=== PATIENT | female | born 1955 | race Hispanic/Latino ===

== ENCOUNTER 2020-01-02 12:07 | Day surgery (SDC) | payer MEDICARE ==
[~2020-01-02] VITALS: Ht 160 cm; Wt 105.6 kg
[~2020-01-02 12:07] MED LIST: ATIV2TAB PO; DOXE150C PO; DOXE50CA PO; LEVO112T2 PO; METF500T13 PO; SERT-138 PO; VASC1CAP2 PO
[2020-01-02] MEDS ORDERED: ONDANSETRON 4MG/2ML VIAL As Ordered ONE (14:23)
[2020-01-02] MEDS ORDERED: fentaNYL 100 MCG/2 ML INJECTION (J3010) As Ordered ONE (14:23)
[2020-01-02] MEDS ORDERED: propofoL 200 MG/20 ML VIAL As Ordered ONE ×2 (14:23→14:36)
[2020-01-02] MEDS ORDERED: LIDOCAINE 2% 100MG/5ML SDV (FOR ANES.) As Ordered ONE (14:23)
[2020-01-02 15:21] VITALS: BP 122/60
--- NOTE | 2020-01-18 11:35 | ROOR ---
Patient Name: Judit Gay Procedure Date: 01/02/2020 12:51 PM Date of : 1955 Age: 64 Room: [facility] Gender: Female Note Status: Finalized Procedure: Upper GI endoscopy Indications: Odynophagia, Heartburn, Failure to respond to medical treatment Providers: Bebo ROBERTS MD Referring MD: BRAYAN SANCHEZ MD Requesting Provider: Medicines: Monitored Anesthesia Care Complications: No immediate complications. Procedure: Pre-Anesthesia Assessment: - The heart rate, respiratory rate, oxygen saturations, blood pressure, adequacy of pulmonary ventilation, and response to care were monitored throughout the procedure. The Endoscope was introduced through the mouth, and advanced to the second part of duodenum. The upper GI endoscopy was accomplished without difficulty. The patient tolerated the procedure well. Findings: The examined esophagus was normal. This was biopsied with a cold forceps for histology. A single 4 mm sessile polyp was found on the anterior wall of the gastric body. The polyp was removed with a cold snare. Resection and retrieval were complete. Two 5 mm sessile polyps were found in the cardia. The polyp was removed with a cold snare. Resection and retrieval were complete. The exam of the stomach was otherwise normal. Biopsies were taken with a cold forceps in the gastric antrum for Helicobacter pylori testing. A single 4 mm sessile polyp (vs acCessory papilla) was found in the area of the major papilla. Biopsies were taken with a cold forceps for histology. The exam of the duodenum was otherwise normal. Impression: - Normal esophagus. Biopsied. - Stomach Body: A single small gastric polyp. Resected and retrieved. - Stomach Cardia: Two small gastric polyps. Resected and retrieved. - Biopsies were taken with a cold forceps for Helicobacter pylori testing. - A single duodenal polyp just proximal to the papilla. Biopsied. Recommendation: - Continue present medications. - Telephone endoscopist for pathology results in 2 weeks. - Use sucralfate tablets 1 gram PO QID. - (the script was sent to your pharmacy on file) Bebo Roberts MD Bebo ROBERTS MD 01/02/2020 3:01:35 PM Electronically signed by Bebo ROBERTS MD Number of Addenda: 0 Note Initiated On: 01/02/2020 12:51 PM Estimated Blood Loss: Estimated blood loss: none.
== END 2020-01-02 15:23 | disposition home or self-care (01) ==
LOC: M OPP 12:07
PROVIDERS: ATTEND Internal Medicine Gastroenterology
DX: K31.7 Polyp of stomach and duodenum (principal); R13.10 Dysphagia, unspecified; R12 Heartburn; K21.9 Gastro-esophageal reflux disease without esophagitis; E11.9 Type 2 diabetes mellitus without complications; Z79.84 Long term (current) use of oral hypoglycemic drugs; Z79.899 Other long term (current) drug therapy; Z88.2 Allergy status to sulfonamides; Z91.012 Allergy to eggs; Z91.018 Allergy to other foods
CPT/HCPCS: 43239; 43251; 88305; 88342; J2405; J3010

== ENCOUNTER → 2020-11-06 | Outpatient (CLI) | payer MEDICARE ==
[~2020-11-06] MED LIST changes: +E-Z-PAQUE 96% w/w SUSP 176GM BTL As Ordered ONE
--- NOTE | 2020-11-06 16:52 | REP ---
INDICATION: DIARRHEA. COMPARISON: None TECHNIQUE: This procedure was performed by Gayathri Heath [facility], under the direct supervision of Dr. Roger. Images were reviewed with Dr. Roger prior to dictation. Liquid barium was administered and the barium column was followed through the small bowel to the level of the terminal ileum. FINDINGS: The spot man film shows no organomegaly or pathological masses. The intestinal gas pattern is unremarkable. Small bowel transit time is approximately 80 minutes. During fluoroscopy gentle palpation shows all loops are freely movable and pliable. There is no fixed angulated loops. The small bowel mucosal pattern is normal in course and caliber. There is no transition to suggest a partial small bowel obstruction. Spot filming of the terminal ileum shows it to be unremarkable. IMPRESSION: Unremarkable small bowel follow-through. 0.3 minutes of fluoroscopy time was utilized for this procedure. Some fluoroscopic images are performed with last image hold technology. These images require no additional radiation. <Electronically signed by Gayathri Heath > 11/06/20 1632 <Electronically signed by Gregory Roger > 11/06/20 [id number]
== END ==
LOC: M RAD 09:23
PROVIDERS: ATTEND Internal Medicine Gastroenterology
DX: R19.7 Diarrhea, unspecified (principal)

== ENCOUNTER → 2020-11-22 | Outpatient (CLI) | payer MEDICARE ==
[~2020-11-22] MED LIST changes: +ATOR80TA59; +DULO1CAP5 PO; -E-Z-PAQUE 96% w/w SUSP 176GM BTL As Ordered ONE; +FAMO20TA5 PO; +GABA600T4 PO
== END ==
LOC: M LABSMTC 11:34
PROVIDERS: ATTEND Anesthesiology
DX: Z01.812 Encounter for preprocedural laboratory examination (principal)

== ENCOUNTER 2020-11-27 06:57 | Day surgery (SDC) | payer MEDICARE ==
[~2020-11-27] VITALS: Ht 162.6 cm; Wt 96.7 kg
[~2020-11-27 06:57] MED LIST changes: +NS 1,000 ML IV ONE
[2020-11-27] MEDS ORDERED: LOPE1CAP5 PO (07:25)
[2020-11-27] MEDS ORDERED: fentaNYL 100 MCG/2 ML INJECTION (J3010) As Ordered ONE (08:03)
[2020-11-27] MEDS ORDERED: propofoL 200 MG/20 ML VIAL As Ordered ONE (08:03)
[2020-11-27] MEDS ORDERED: LIDOCAINE 2% 100MG/5ML SDV (FOR ANES.) As Ordered ONE (08:03)
--- NOTE | 2020-11-27 08:25 | ROOR ---
Patient Name: Judit Green Procedure Date: 11/27/2020 8:12 AM Date of : 1955 Age: 65 Room: [facility] Gender: Female Note Status: Finalized Procedure: Upper GI endoscopy Indications: Abdominal pain, Dyspepsia, Heartburn Providers: Bebo Gonzalez MD Referring MD: BRAYAN SANCHEZ MD Requesting Provider: Medicines: Monitored Anesthesia Care Complications: No immediate complications. Procedure: Pre-Anesthesia Assessment: - The heart rate, respiratory rate, oxygen saturations, blood pressure, adequacy of pulmonary ventilation, and response to care were monitored throughout the procedure. The Endoscope was introduced through the mouth, and advanced to the second part of duodenum. The upper GI endoscopy was accomplished without difficulty. The patient tolerated the procedure well. Findings: The esophagus was normal. The stomach was normal. The examined duodenum was normal. Biopsies for histology were taken with a cold forceps in the second portion of the duodenum for evaluation of celiac disease. Biopsies were taken with a cold forceps in the gastric antrum for Helicobacter pylori testing. Impression: - Normal esophagus. - Normal stomach. - Normal examined duodenum. - Biopsies were taken with a cold forceps for evaluation of celiac disease. - Biopsies were taken with a cold forceps for Helicobacter pylori testing. Recommendation: - Await pathology results. - Telephone endoscopist for pathology results in 2 weeks. - Follow an antireflux regimen. Procedure Code(s): --- Professional --- 89260, Esophagogastroduodenoscopy, flexible, transoral; with biopsy, single or multiple Diagnosis Code(s): --- Professional --- R12, Heartburn R10.13, Epigastric pain R10.9, Unspecified abdominal pain CPT copyright 2019 [employer]. All rights reserved. The codes documented in this report are preliminary and upon billing and accounting staff assistant review may be revised to meet current compliance requirements. Bebo Gonzalez MD Bebo Gonzalez MD 11/27/2020 8:25:00 AM Electronically signed by Bebo Gonzalez MD Number of Addenda: 0 Note Initiated On: 11/27/2020 8:12 AM Estimated Blood Loss: Estimated blood loss: none. Estimated blood loss: none.
[2020-11-27] MEDS ORDERED: ePHEDrine SULFATE 25 MG/5 ML(5MG/ML) SYRINGE As Ordered ONE (08:32)
--- NOTE | 2020-11-27 08:46 | ROOR ---
Patient Name: Judit Green Procedure Date: 11/27/2020 8:13 AM Date of : 1955 Age: 65 Room: [facility] Gender: Female Note Status: Finalized Procedure: Colonoscopy Indications: Clinically significant diarrhea of unexplained origin, Weight loss Providers: Bebo Gonzalez MD Referring MD: BRAYAN SANCHEZ MD Requesting Provider: Medicines: Monitored Anesthesia Care Complications: No immediate complications. Procedure: Pre-Anesthesia Assessment: - The heart rate, respiratory rate, oxygen saturations, blood pressure, adequacy of pulmonary ventilation, and response to care were monitored throughout the procedure. The Colonoscope was introduced through the anus and advanced to 10 cm into the ileum. The colonoscopy was performed without difficulty. The patient tolerated the procedure well. The quality of the bowel preparation was adequate and fair. Findings: The perianal and digital rectal examinations were normal. The terminal ileum appeared normal. A 5 mm polyp was found in the proximal ascending colon. The polyp was sessile. The polyp was removed with a cold snare. Resection and retrieval were complete. Multiple medium-mouthed diverticula were found in the sigmoid colon and descending colon. Internal hemorrhoids were found during retroflexion. The hemorrhoids were moderate. The exam was otherwise without abnormality on direct and retroflexion views. Biopsies for histology were taken with a cold forceps from the entire colon for evaluation of microscopic colitis. Impression: - Preparation of the colon was fair. - The examined portion of the ileum was normal. - One 5 mm polyp in the proximal ascending colon, removed with a cold snare. Resected and retrieved. - Diverticulosis in the sigmoid colon and in the descending colon. - Internal hemorrhoids. - The examination was otherwise normal on direct and retroflexion views. - Biopsies were taken with a cold forceps from the entire colon for evaluation of microscopic colitis. Recommendation: - Repeat colonoscopy in 3 years because the bowel preparation was suboptimal and for surveillance. - Telephone endoscopist for pathology results in 2 weeks. Procedure Code(s): --- Professional --- 78421, Colonoscopy, flexible; with removal of tumor(s), polyp(s), or other lesion(s) by snare technique 14830, 59, Colonoscopy, flexible; with biopsy, single or multiple Diagnosis Code(s): --- Professional --- K57.30, Diverticulosis of large intestine without perforation or abscess without bleeding R19.7, Diarrhea, unspecified R63.4, Abnormal weight loss K63.5, Polyp of colon K64.8, Other hemorrhoids CPT copyright 2019 [employer]. All rights reserved. The codes documented in this report are preliminary and upon tailor helper review may be revised to meet current compliance requirements. Bebo Gonzalez MD Bebo Gonzalez MD 11/27/2020 8:45:38 AM Electronically signed by Bebo Gonzalez MD Number of Addenda: 0 Note Initiated On: 11/27/2020 8:13 AM Estimated Blood Loss: Estimated blood loss: none.
[2020-11-27 09:05] VITALS: BP 137/87
== END 2020-11-27 09:11 | disposition home or self-care (01) ==
LOC: M OPP 06:57
PROVIDERS: ATTEND Internal Medicine Gastroenterology
DX: K63.5 Polyp of colon (principal); K57.30 Diverticulosis of large intestine without perforation or abscess without bleeding; K64.8 Other hemorrhoids; R19.7 Diarrhea, unspecified; R63.4 Abnormal weight loss; R10.9 Unspecified abdominal pain; K29.50 Unspecified chronic gastritis without bleeding; G47.30 Sleep apnea, unspecified; Z79.84 Long term (current) use of oral hypoglycemic drugs; Z79.899 Other long term (current) drug therapy; Z91.012 Allergy to eggs
CPT/HCPCS: 43239; 45380; 45385; 88305; J3010

== ENCOUNTER → 2021-08-10 | Outpatient (CLI) | payer MEDICARE ==
[~2021-08-10] MED LIST changes: -ATOR80TA59; +ATOR80TA59 PO; +B-12100010 PO; +LOPE1CAP5 PO; +LOPE2TAB12 PO; +LORA1TAB4 PO; +MELO7.5T35 PO; +MONT10TA97 PO; +MYRB50TA PO; -NS 1,000 ML IV ONE; +PANT40TA29 PO; +VITA1CHW8 PO; +ZOLO100T PO
== END ==
LOC: M LABSMTC 09:14
PROVIDERS: ATTEND Anesthesiology
DX: Z01.812 Encounter for preprocedural laboratory examination (principal); Z20.822 Contact with and (suspected) exposure to COVID-19

== ENCOUNTER → 2025-04-28 | Outpatient (CLI) | payer MEDICARE ==
[~2025-04-28] MED LIST changes: +GABA-1490 PO; -GABA600T4 PO; +LORA1TAB23 PO; -LORA1TAB4 PO
== END ==
LOC: M WHC 11:07
PROVIDERS: ATTEND Family Medicine
DX: Z12.31 Encounter for screening mammogram for malignant neoplasm of breast (principal)